=== PATIENT | male | born 1985 | race Caucasian/White ===

== ENCOUNTER 2018-11-21 01:39 | Emergency (ER) | payer OTHER ==
[~2018-11-21] VITALS: Ht 188 cm; Wt 84.1 kg
[2018-11-21] MEDS ORDERED: ACETAMINOPHEN 500 MG TAB PO ONE (03:45)
[2018-11-21 04:07] VITALS: BP 129/81
--- NOTE | 2018-11-21 07:54 | REP ---
Clinical: Chest pain . Comparison: None . Findings: The mediastinum and cardiac silhouette are stable and within normal limits for portable technique. The lung bae are clear without acute consolidation, effusion, or pneumothorax. Skeletal structures are intact. Impression: No acute cardiopulmonary process appreciated. Electronically Signed by Srinivasan Buchanan MD 11/21/2018 07:45 A
--- NOTE | 2018-11-21 08:23 | ECGEPIP ---
[facility] - ED Test Date: 2018-11-21 Pat Name: MICHELINE MCCLOUD Department: Room: - Gender: Male Agriculture Specialist: armando : [id number] Requested By: NIURKA ACKERMAN Order Number: [id number] Reading MD: Royal Stevens Measurements Intervals [place] Rate: 69 P: 44 AL: 146 QRS: 64 QRSD: 99 T: 38 QT: 360 QTc: 388 Interpretive Statements SINUS RHYTHM BENIGN EARLY REPOLARIZATION NO PRIORS FOR COMPARISON Electronically Signed on 11-21-2018 8:23:38 EDT by Royal Stevens
== END 2018-11-21 04:11 | disposition home or self-care (01) ==
LOC: M ED 01:39
DX: R07.89 Other chest pain (principal)